=== PATIENT | female | born 1985 | race Caucasian/White ===

== ENCOUNTER 2018-08-23 15:12 | Inpatient (IN) ==
[2018-08-23] MEDS ORDERED: methylPREDNISolone SOD SUCC 125 MG/2 ML VIAL IV ONE (15:21)
[2018-08-23] MEDS ORDERED: IPRATROPIUM/ALBUTEROL 3 ML AMPUL.NEB NEB ONE ×2 (15:22→20:00)
--- NOTE | 2018-08-23 15:43 | XRay Report ---
CLINICAL INFORMATION: SOB COMPARISON: 08/18/2012 FINDINGS: Heart size, mediastinum and pulmonary vessels are normal. Moderate patchy infiltrate is developed in the right base with smaller patchy developing in the left base. No effusion IMPRESSION: Moderate patchy right basilar and smaller patchy left basilar infiltrate - new Interpreted and Authenticated by: Bala Perez 08/23/18
[2018-08-23 15:57] LABS: Mean Cell Volume 89.4 fL (80.0-100.0); Mean Corpuscular HGB Conc 33.3 g/dL (31.0-36.0); Mean Corpuscular Hemoglobin 29.8 pg (26.0-34.0); Platelet Count 265 K/mcL (140-440); RBC 5.36 M/mcL (4.00-5.20); Red Cell Distribution Width 12.9 % (11.5-14.5)
[2018-08-23] MEDS ORDERED: cefTRIAXone 1 GM VIAL IV ONE (15:57)
[2018-08-23] MEDS ORDERED: AZITHROMYCIN 500 MG in DEXTROSE 5% IN WATER 250 ML IV ONE (16:00)
[2018-08-23] MEDS ORDERED: 0.9 % SODIUM CHLORIDE 1,000 ML IV ONE ×2 (16:01→17:54)
--- NOTE | 2018-08-23 16:04 | Emergency Department Note ---
SOB HPI - General Chief Complaint: Shortness of Breath/Dyspnea Stated Complaint: SOB, tachycardia Time Seen by Provider: 08/23/18 15:19 Source: patient Mode of arrival: ambulatory Limitations: no limitations - History of Present Illness Patient has been complaining of wheezing for the past 4 days and cough. She was being seen at the pain clinic when they referred over to the ED because of her tachycardia and her shortness of breath with wheezing. She does have a history of asthma since childhood and she is been using albuterol inhaler he has been on prednisone in the past for her asthma as well.Her temperature is 98.0 her heart rate is 125 respiratory rate is 28 blood pressure 127/116 pulse ox was 94% on room air. Patient states she has been afebrile but is been her wheezing is made her short of breath. Does smoke approximately half pack of cigarettes a day she states she has had asthma since childhood - Related Data Home Medications Medication Instructions Recorded Confirmed HYDROcodone/ACETAMINOPHEN [Lortab 1 - 2 tab PO Q4H PRN 10/11/15 09/28/17 10-325 mg Tablet] Dronabinol [Marinol] 5 mg PO BID 06/11/16 09/28/17 FLUoxetine HCL [Sarafem] 20 mg PO DAILY 06/11/16 09/28/17 Gabapentin [Neurontin] 400 mg PO TID 06/11/16 09/28/17 Methocarbamol [Robaxin] 750 mg PO TID 06/11/16 09/28/17 Propranolol [Inderal] 20 mg PO DAILY 06/11/16 09/28/17 Zolpidem [Ambien] 5 mg PO HSP PRN 06/11/16 09/28/17 hydrOXYzine HCL [Hydroxyzine HCl] 50 mg PO TID 06/11/16 09/28/17 Previous Rx's Medication Instructions Recorded Cephalexin [Keflex] 500 mg PO BID #20 cap 01/17/18 Allergies Allergy/AdvReac Type Severity Reaction Status Date / Time clavulanic acid Allergy Mild Vomiting Verified 08/23/18 15:17 Buspirone [From BuSpar] Allergy Unknown Unknown Verified 08/23/18 15:17 fluticasone Allergy Unknown Unknown Verified 08/23/18 15:17 [From Advair Diskus] salmeterol Allergy Unknown Unknown Verified 08/23/18 15:17 [From Advair Diskus] sulfamethoxazole Allergy Unknown Unknown Verified 08/23/18 15:17 [From Septra] trimethoprim [From ] Allergy Unknown Unknown Verified 08/23/18 15:17 Review of Systems All systems ED: reviewed and negative except as stated. Constitutional: Denies: fever, chills Cardiovascular: Denies: chest pain, palpitations, dyspnea on exertion, orthopnea Respiratory: Reports: shortness of breath, cough, wheezes Gastrointestinal: Denies: abdominal pain Genitourinary: Denies: dysuria Past Medical History - Past Medical History Medical history: Reports: arthritis, asthma Psychiatric history: Reports: depression, prior suicide attempt, other (Self- harm, cutting) Surgical history ED: Reports: appendectomy, cholecystectomy, hysterectomy Family history: Reports: non-contributory - Social History smoking status: Current every day smoker Alcohol use: Reports: Occasionally Drug use: Reports: unknown Physical Exam Limitations: no limitations General appearance: alert Head: atraumatic Eye: Present: normal appearance, PERRL ENT: normal exam, normal oropharynx, mucous membranes moist Neck: Present: normal inspection Chest: Present: normal inspection Respiratory: Present: wheezes Cardiovascular: Present: regular rate, normal rhythm, tachycardia Abdominal: Present: soft, normal bowel sounds. Absent: distention, tenderness, guarding, rebound, rigidity Extremities: Present: normal inspection, full ROM Back: Present: normal inspection, full ROM, tenderness Neurological: Present: alert, oriented X3, CN II-XII intact Psychiatric: Present: normal affect, normal mood Skin: Present: warm, dry Course Vital Signs Temperature 98.0 F 08/23/18 15:13 Pulse Rate 128 H 08/23/18 15:13 Respiratory Rate 28 H 08/23/18 15:13 Blood Pressure 127/116 08/23/18 15:13 Pulse Oximetry (%) 94 08/23/18 15:13 Temperature 98.0 F 08/23/18 15:13 Pulse Rate 128 H 08/23/18 15:13 Respiratory Rate 28 H 08/23/18 15:13 Blood Pressure 127/116 08/23/18 15:13 Pulse Oximetry (%) 94 08/23/18 15:13 Shortness of Breath/Dyspnea - MDM Narrative Medical decision making narrative: Chest x-ray shows pneumonia both the left and the right. Blood cultures have been drawn lactic acid is pending. She started on Rocephin and Zithromax. Patient is not taking her hydroxyzineWBC is 12,000 with a hemoglobin 15.9 hematocrit of 47.9 the lactic acid was 2.4 sodium is 140 potassium 4.1 and chloride is 104 CO2 is 19 BUN is 9 creatinine 0.8 glucose is 110 of her function tests are normal the pro calcitonin level is less than 0.05. Blood cultures have been drawn. And patient started on Zithromax and Rocephin. Chest x-ray reveals right basilar and left basilar infiltrates ABGs were performed. Dr. Arrington contacted to be admitted requested vancomycin and Zosyn - Lab Data Result diagrams: 08/23/18 15:18 08/23/18 15:18 Lab Results 08/23/18 08/23/18 08/23/18 Range/Units 15:18 15:18 15:18 WBC 12.0 H (4.5-11.0) K/mcL RBC 5.36 H (4.00-5.20) M/mcL Hgb 15.9 H (12.0-15.0) g/dL Hct 47.9 (36.0-48.0) % MCV 89.4 (80.0-100.0) fL MCH 29.8 (26.0-34.0) pg MCHC 33.3 (31.0-36.0) g/dL RDW 12.9 (11.5-14.5) % Plt Count 265 (140-440) K/mcL MPV 9.1 (7.4-10.4) fL Total Counted 100 Seg Neutrophils % 67 (38-78) % Band Neutrophils % Not Reportable Lymphocytes % 28 (15-49) % Monocytes % (Manual) 4 (1-12) % Eosinophils % (Manual) 1 (0-7) % Platelet Estimate Normal (NORMAL) RBC Morphology Normal (NORMAL) VBG Lactic Acid 2.4 H (0.5-2.2) mmol/L Sodium 140 (133-145) mmol/L Potassium 4.1 (3.3-5.1) mmol/L Chloride 104 (96-108) mmol/L Carbon Dioxide 19 L (22-30) mmol/L Anion Gap 17.0 H (8-16) BUN 9 (6-20) mg/dl Creatinine 0.8 (0.6-1.1) mg/dl GFR Calculation 96 Glucose 110 H (70-105) mg/dL Calcium 9.3 (8.6-10.4) mg/dl Total Bilirubin < 0.2 (0.0-1.0) mg/dL AST 10 (0-37) U/l ALT 11 (0-40) U/l Alkaline Phosphatase 69 (39-117) U/L Total Protein 7.3 (5.9-8.4) gm/dL Albumin 4.2 (3.2-5.2) gm/dL Globulin 3.1 (2.2-3.7) gm/dL Albumin/Globulin Ratio 1.4 (1.0-2.3) Procalcitonin (<0.10) ng/mL Salicylates mg/dL Urine Opiates Screen (NONDETECTED) Ur Oxycodone Screen (NONDETECTED) Urine Methadone Screen (NONDETECTED) Acetaminophen ug/mL Ur Barbiturates Screen (NONDETECTED) Ur Phencyclidine Scrn (NONDETECTED) Ur Amphetamines Screen (NONDETECTED) U Benzodiazepines Scrn (NONDETECTED) Urine Cocaine Screen (NONDETECTED) U Marijuana (THC) Screen (NONDETECTED) Ethyl Alcohol (<0.010) gm/dl 08/23/18 08/23/18 08/23/18 Range/Units 15:18 15:26 15:27 WBC (4.5-11.0) K/mcL RBC (4.00-5.20) M/mcL Hgb (12.0-15.0) g/dL Hct (36.0-48.0) % MCV (80.0-100.0) fL MCH (26.0-34.0) pg MCHC (31.0-36.0) g/dL RDW (11.5-14.5) % Plt Count (140-440) K/mcL MPV (7.4-10.4) fL Total Counted Seg Neutrophils % (38-78) % Band Neutrophils % Lymphocytes % (15-49) % Monocytes % (Manual) (1-12) % Eosinophils % (Manual) (0-7) % Platelet Estimate (NORMAL) RBC Morphology (NORMAL) VBG Lactic Acid (0.5-2.2) mmol/L Sodium (133-145) mmol/L Potassium (3.3-5.1) mmol/L Chloride (96-108) mmol/L Carbon Dioxide (22-30) mmol/L Anion Gap (8-16) BUN (6-20) mg/dl Creatinine (0.6-1.1) mg/dl GFR Calculation Glucose (70-105) mg/dL Calcium (8.6-10.4) mg/dl Total Bilirubin (0.0-1.0) mg/dL AST (0-37) U/l ALT (0-40) U/l Alkaline Phosphatase (39-117) U/L Total Protein (5.9-8.4) gm/dL Albumin (3.2-5.2) gm/dL Globulin (2.2-3.7) gm/dL Albumin/Globulin Ratio (1.0-2.3) Procalcitonin < 0.05 (<0.10) ng/mL Salicylates mg/dL Urine Opiates Screen Suspect positive A (NONDETECTED) Ur Oxycodone Screen None detected (NONDETECTED) Urine Methadone Screen None detected (NONDETECTED) Acetaminophen ug/mL Ur Barbiturates Screen None detected (NONDETECTED) Ur Phencyclidine Scrn None detected (NONDETECTED) Ur Amphetamines Screen None detected (NONDETECTED) U Benzodiazepines Scrn None detected (NONDETECTED) Urine Cocaine Screen None detected (NONDETECTED) U Marijuana (THC) Screen None detected (NONDETECTED) Ethyl Alcohol < 0.010 (<0.010) gm/dl 08/23/18 Range/Units 15:27 WBC (4.5-11.0) K/mcL RBC (4.00-5.20) M/mcL Hgb (12.0-15.0) g/dL Hct (36.0-48.0) % MCV (80.0-100.0) fL MCH (26.0-34.0) pg MCHC (31.0-36.0) g/dL RDW (11.5-14.5) % Plt Count (140-440) K/mcL MPV (7.4-10.4) fL Total Counted Seg Neutrophils % (38-78) % Band Neutrophils % Lymphocytes % (15-49) % Monocytes % (Manual) (1-12) % Eosinophils % (Manual) (0-7) % Platelet Estimate (NORMAL) RBC Morphology (NORMAL) VBG Lactic Acid (0.5-2.2) mmol/L Sodium (133-145) mmol/L Potassium (3.3-5.1) mmol/L Chloride (96-108) mmol/L Carbon Dioxide (22-30) mmol/L Anion Gap (8-16) BUN (6-20) mg/dl Creatinine (0.6-1.1) mg/dl GFR Calculation Glucose (70-105) mg/dL Calcium (8.6-10.4) mg/dl Total Bilirubin (0.0-1.0) mg/dL AST (0-37) U/l ALT (0-40) U/l Alkaline Phosphatase (39-117) U/L Total Protein (5.9-8.4) gm/dL Albumin (3.2-5.2) gm/dL Globulin (2.2-3.7) gm/dL Albumin/Globulin Ratio (1.0-2.3) Procalcitonin (<0.10) ng/mL Salicylates < 0.3 mg/dL Urine Opiates Screen (NONDETECTED) Ur Oxycodone Screen (NONDETECTED) Urine Methadone Screen (NONDETECTED) Acetaminophen < 5.0 ug/mL Ur Barbiturates Screen (NONDETECTED) Ur Phencyclidine Scrn (NONDETECTED) Ur Amphetamines Screen (NONDETECTED) U Benzodiazepines Scrn (NONDETECTED) Urine Cocaine Screen (NONDETECTED) U Marijuana (THC) Screen (NONDETECTED) Ethyl Alcohol (<0.010) gm/dl Disposition Pt seen by [facility]LL[facility] POLISHER/PA only: No Clinical Impression: Pneumonia Qualifiers: Laterality: bilateral Lung location: lower lobe of lung Disposition: Xfer As Inpt ([facility]) Condition: Fair Referrals: Tiago Hedrick [Primary Care Provider] - Time of Disposition: 17:30
[2018-08-23 16:18] LABS: ALT/SGPT 11 U/l (0-40); Albumin 4.2 gm/dL (3.2-5.2); Albumin/Globulin Ratio 1.4 (1.0-2.3); Alkaline Phosphatase 69 U/L (39-117); Blood Urea Nitrogen 9 mg/dl (6-20)
[2018-08-23 16:20] LABS: Acetaminophen < 5.0 ug/mL; Salicylate < 0.3 mg/dL
[2018-08-23 16:36] LABS: Eosinophils % (Manual) 1 % (0-7); Lymphocytes % 28 % (15-49); Monocytes % (Manual) 4 % (1-12); Platelet Estimate NORMAL (NORMAL); RBC Morphology NORMAL (NORMAL); Segmented Neutrophils % 67 % (38-78)
[2018-08-23 17:04] LABS: Amphetamine Screen,Urine NONE DETECTED (NONDETECTED); Benzodiazepines Screen,Urine NONE DETECTED (NONDETECTED); Cocaine Screen,Urine NONE DETECTED (NONDETECTED); Opiate Screen,Urine SUSPECT POSITIVE (NONDETECTED); Oxycodone, Urine Screen NONE DETECTED (NONDETECTED)
[2018-08-23] MEDS ORDERED: PIPERACILLIN SODIUM/TAZOBACTAM 3.375 GM in DEXTROSE 5% IN WATER 50 ML IV ONE ×2 (17:30→19:44)
[2018-08-23] MEDS ORDERED: VANCOMYCIN 1,000 MG in 0.9 % SODIUM CHLORIDE 250 ML IV ONE (17:33)
--- NOTE | 2018-08-23 17:53 | Internal Med History&Physical ---
Medical - H&P: [facility] Patient information: Note initiated : 08/23/18 at 5:53 pm Service Date, if different from initiated Date: [] Patient: Marry Lerma a 33 y/o F admitted on for SOB, tachycardia. Chief Complaint: [] Chief complaint: sob History of present illness: Ms. Lerma is a 33 year old F with two week onset progressive SOB, weakness, Shaking chills and fever as high as 103. Endorses to sick contact son, Yellow brown productive sputum. Symptoms associated with severe malaise, drenching sweats. She denies aspiration episode. She further denies binge alcoholism or loss of consciousness. She failed to seek medical attention for 2 weeks until she was barely able to get out of bed or function. She subsequently came to the ER. Initial workup- Elevated WBC, bilateral chest infiltrates on imaging along with elevated lactic acid. Patient received first dose of antibiotics after blood cultures were drawn. Hospitalist service was consulted. Denies CP, Dirrhea, Arthralgia, rash, dirrhea, abdominal pain, photophobia or headache. Review of systems 10 point review systems was performed and is negative except for discussed above Medical - H&P: PMH Medical history: RAD Lower back pain H/o PNA X 2, last 4 years ago Surgical history: Cystectomy Family history: reviewed and not pertinent Pertinent family history: Grandmother cancer Social history: , 10 Yr old kid, Diabled Smokes c etoh Drug use: none Alcohol use: none Medical - H&P: Meds Home Medications Medication Instructions Recorded Confirmed Type HYDROcodone/ACETAMINOPHEN [Lortab 1 - 2 tab PO Q4H PRN 10/11/15 09/28/17 History 10-325 mg Tablet] Dronabinol [Marinol] 5 mg PO BID 06/11/16 09/28/17 History FLUoxetine HCL [Sarafem] 20 mg PO DAILY 06/11/16 09/28/17 History Gabapentin [Neurontin] 400 mg PO TID 06/11/16 09/28/17 History Methocarbamol [Robaxin] 750 mg PO TID 06/11/16 09/28/17 History Propranolol [Inderal] 20 mg PO DAILY 06/11/16 09/28/17 History Zolpidem [Ambien] 5 mg PO HSP PRN 06/11/16 09/28/17 History hydrOXYzine HCL [Hydroxyzine HCl] 50 mg PO TID 06/11/16 09/28/17 History Cephalexin [Keflex] 500 mg PO BID #20 cap 01/17/18 Rx Allergies Allergy/AdvReac Type Severity Reaction Status Date / Time clavulanic acid Allergy Mild Vomiting Verified 08/23/18 15:17 Buspirone [From BuSpar] Allergy Unknown Unknown Verified 08/23/18 15:17 fluticasone Allergy Unknown Unknown Verified 08/23/18 15:17 [From Advair Diskus] salmeterol Allergy Unknown Unknown Verified 08/23/18 15:17 [From Advair Diskus] sulfamethoxazole Allergy Unknown Unknown Verified 08/23/18 15:17 [From Septra] trimethoprim [From Septra] Allergy Unknown Unknown Verified 08/23/18 15:17 Medical - H&P: Exam - Constitutional Vitals: Temp Pulse Resp BP Pulse Ox 98.0 F 128 H 28 H 127/116 94 08/23/18 15:13 08/23/18 15:13 08/23/18 15:13 08/23/18 15:13 08/23/18 15:13 General appearance: moderate distress (SOB) Exam: Pupils symmetric Oral cavity dry No eardischarge Head normocephalic Neck lymphadenopathy S1 and S2 tachycardia Prolonged expiratory phase and diminished breath sounds bases Abdomen soft Skin no suspicious lesion Extremities no cyanosis clubbing or joint swelling Psych alert cooperative but anxious Neuro nonfocal, normal heart function and limited neuro exam Medical - H&P: Reslt - Labs CBC & Chem 7: 08/23/18 15:18 08/23/18 15:18 Labs: Short CBC 08/23/18 Range/Units 15:18 WBC 12.0 H (4.5-11.0) K/mcL Hgb 15.9 H (12.0-15.0) g/dL Hct 47.9 (36.0-48.0) % Plt Count 265 (140-440) K/mcL BMP 08/23/18 15:18 Sodium 140 Potassium 4.1 Chloride 104 Carbon Dioxide 19 L BUN 9 Creatinine 0.8 Glucose 110 H Calcium 9.3 Liver Function 08/23/18 Range/Units 15:18 Total Bilirubin < 0.2 (0.0-1.0) mg/dL AST 10 (0-37) U/l ALT 11 (0-40) U/l Alkaline Phosphatase 69 (39-117) U/L Albumin 4.2 (3.2-5.2) gm/dL Medical - H&P: A/P (1) Bilateral pneumonia Current visit: Yes Status: Acute * Bilateral PNA-likely community acquired versus aspiration. Initiate Broad Abx coverage. Strep/Mycoplasma, Legionella, Flu swab, blood cultures, sputum cultures and Gram stain. * Severe sepsis- Trend lactate, Manage per protocol. ICU admit, Crystalloids * Asthma exacerbation- LABA/ICS/oxygen supplement * Full code * DVT prop- Heparin Plan * Telemetry admit * Sepsis management protocol * Broad antibiotic coverage * Trend venous lactate
[2018-08-23] MEDS ORDERED: NOREPINEPHRINE BITARTRATE 16 MG in 0.9 % SODIUM CHLORIDE 234 ML IV SCH (19:44)
[2018-08-23] MEDS ORDERED: ONDANSETRON 4 MG/2 ML VIAL IV PRN (19:44)
[2018-08-23] MEDS ORDERED: VANCOMYCIN PER PHARMACY IV SCH (19:44)
[2018-08-23] MEDS ORDERED: ACETAMINOPHEN 1,000 MG/100 ML BOTTLE IV PRN (19:44)
[2018-08-23] MEDS ORDERED: POTASSIUM CHLORIDE 20 MEQ PACKET PO PRN (19:44)
[2018-08-23] MEDS ORDERED: ACETAMINOPHEN 325 MG TABLET PO PRN (19:44)
[2018-08-23] MEDS ORDERED: MAGNESIUM SULFATE 2 GM/50 ML BAG IV PRN (19:44)
[2018-08-23] MEDS: IPRATROPIUM/ALBUTEROL 3 ML AMPUL.NEB NEB SCH ×2 (19:54→23:20)
[2018-08-23] MEDS: BUDESONIDE 0.5 MG/2 ML AMPUL.NEB NEB SCH (19:54)
[2018-08-23] MEDS ORDERED: BUDESONIDE 0.5 MG/2 ML AMPUL.NEB NEB ONE (20:00)
[2018-08-23] MEDS: 0.9 % SODIUM CHLORIDE 1,000 ML IV SCH (20:19)
[2018-08-23] MEDS ORDERED: HYDROcodone/APAP 10/325MG TABLET PO PRN (20:39)
[2018-08-23] MEDS: HYDROcodone/APAP 10/325MG TABLET PO PRN (21:48)
[2018-08-23] MEDS: DOCUSATE SODIUM 100 MG CAPSULE PO SCH (21:49)
[2018-08-23] MEDS: SENNOSIDES/DOCUSATE SODIUM 1 TAB TABLET PO SCH (21:49)
[2018-08-23] MEDS: HEPARIN 5,000 UNIT/ML VIAL SQ SCH (21:49)
[2018-08-23] MEDS: GABAPENTIN 400 MG CAPSULE PO SCH (21:49)
[2018-08-23] MEDS: guaiFENesin/CODEINE 10 ML UDC PO PRN (21:50)
[2018-08-23] MEDS ORDERED: NICOTINE 14 MG PATCH ONE (22:18)
[2018-08-23] MEDS: DRONABINOL 2.5 MG CAPSULE PO SCH (22:26)
[2018-08-23] MEDS: ZOLPIDEM 5 MG TABLET PO PRN ×3 (22:26→22:29)
[2018-08-23] MEDS: 0.9 % SODIUM CHLORIDE 10 ML SYRINGE IV SCH (22:28)
[2018-08-23] MEDS: NICOTINE 14 MG PATCH TOPICAL SCH (22:30)
[2018-08-24] MEDS: PIPERACILLIN SODIUM/TAZOBACTAM 3.375 GM in DEXTROSE 5% IN WATER 50 ML IV SCH ×2 (00:08→05:50)
[2018-08-24] MEDS: IPRATROPIUM/ALBUTEROL 3 ML AMPUL.NEB NEB SCH ×6 (03:15→22:57)
[2018-08-24] MEDS: HYDROcodone/APAP 10/325MG TABLET PO PRN ×4 (03:21→18:51)
[2018-08-24] MEDS: guaiFENesin/CODEINE 10 ML UDC PO PRN ×4 (04:12→18:53)
[2018-08-24 05:32] LABS: Mean Cell Volume 91.3 fL (80.0-100.0); Mean Corpuscular HGB Conc 32.7 g/dL (31.0-36.0); Mean Corpuscular Hemoglobin 29.8 pg (26.0-34.0); Platelet Count 204 K/mcL (140-440); RBC 4.65 M/mcL (4.00-5.20); Red Cell Distribution Width 12.9 % (11.5-14.5)
[2018-08-24 05:33] LABS: ALT/SGPT 7 U/l (0-40); Albumin 3.3 gm/dL (3.2-5.2); Albumin/Globulin Ratio 1.1 (1.0-2.3); Alkaline Phosphatase 50 U/L (39-117); Bilirubin,Direct < 0.2 mg/dL (0.0-0.3); Blood Urea Nitrogen 10 mg/dl (6-20); Gamma Glutamyl Transpeptidase 21 U/L (5-36)
[2018-08-24] MEDS: 0.9 % SODIUM CHLORIDE 10 ML SYRINGE IV SCH ×3 (05:51→22:15)
[2018-08-24 07:48] LABS: Band Neutrophils % 1 % (0-10); Lymphocytes % 21 % (15-49); Monocytes % (Manual) 2 % (1-12); Platelet Estimate NORMAL (NORMAL); RBC Morphology NORMAL (NORMAL); Segmented Neutrophils % 75 % (38-78)
[2018-08-24] MEDS: 0.9 % SODIUM CHLORIDE 1,000 ML IV SCH ×2 (08:14→19:09)
[2018-08-24] MEDS: MULTIVIT,THER IRON,CA,FA & MIN 1 TABLET PO SCH (08:34)
[2018-08-24] MEDS: HEPARIN 5,000 UNIT/ML VIAL SQ SCH ×2 (08:34→20:11)
[2018-08-24] MEDS: GABAPENTIN 400 MG CAPSULE PO SCH ×3 (08:34→20:12)
[2018-08-24] MEDS: DOCUSATE SODIUM 100 MG CAPSULE PO SCH ×2 (08:34→20:12)
[2018-08-24] MEDS ORDERED: VANCOMYCIN 1,000 MG in 0.9 % SODIUM CHLORIDE 250 ML IV SCH (09:00)
[2018-08-24] MEDS: BUDESONIDE 0.5 MG/2 ML AMPUL.NEB NEB SCH ×2 (09:15→19:02)
[2018-08-24] MEDS ORDERED: NOREPINEPHRINE BITARTRATE 16 MG in 0.9 % SODIUM CHLORIDE 234 ML IV PRN (10:00)
--- NOTE | 2018-08-24 10:37 | Internal Med Progress Note ---
Medical - PN: Subj Patient information: Note initiated : 08/24/18 at 10:35 am Service Date, if different from initiated Date: [] Patient: Marry Lerma a 33 y/o F admitted on 08/23/18 for SOB, tachycardia. Chief Complaint: [] Interval history: Ms. Lerma is a 33 year old F with two week onset progressive SOB, weakness, Shaking chills and fever as high as 103. Endorses to sick contact son, Yellow brown productive sputum. Symptoms associated with severe malaise, drenching sweats. She denies aspiration episode. She further denies binge alcoholism or loss of consciousness. She failed to seek medical attention for 2 weeks until she was barely able to get out of bed or function. She subsequently came to the ER. Initial workup- Elevated WBC, bilateral chest infiltrates on imaging along with elevated lactic acid. Patient received first dose of antibiotics after blood cultures were drawn. Hospitalist service was consulted. Denies CP, Dirrhea, Arthralgia, rash, dirrhea, abdominal pain, photophobia or headache. 08/24-patient doing well. No overnight events. Persistent tachycardia. Venous lactate at 3.2. White count down from 12-9.4. Urine strep pneumo antigen positive along with mycoplasma IgM. Excellent coverage to cover atypicals. Mother and son at bedside. Patient feels a little better. Continue existing treatment. MAXIMUM TEMPERATURE 99.4. Stable hemodynamics. Persistent cough. Back pain stable on home meds. Continue bronchodilators/ steroids. Switched to Levaquin/ Rocephin, DC Zosyn/vancomycin - Constitutional Vitals: Vital Signs Temp Pulse Resp BP Pulse Ox 99.4 F H 121 H 17 102/53 94 08/24/18 08:25 08/24/18 10:01 08/24/18 10:01 08/24/18 10:01 08/24/18 10:01 Period Temp Pulse Resp BP Sys/Prajapati Pulse Ox Last 24 Hr 98.0 F-99.7 F 76-153 14-33 102-135/53-116 91-98 Intake and Output 08/23/18 08/24/18 08/24/18 21:59 05:59 13:59 Intake Total 2790 / 2790 570 / 570 1290 / 1290 Output Total 850 / 850 950 / 950 850 / 850 Balance 1940 / 1940 -380 / -380 440 / 440 Weight 140 lb 14.4 oz Intake & Output: Intake & Output 08/23/18 08/24/18 08/24/18 21:59 05:59 13:59 Intake Total 2790 / 2790 570 / 570 1290 / 1290 Output Total 850 / 850 950 / 950 850 / 850 Balance 1939 / 0 -380 / -380 440 / 440 Weight 140 lb 14.4 oz Intake: IV 2550 / 2550 50 / 50 1050 / 1050 Sodium Chloride 0.9% 1,000 ml @ 2000 / 2000 1000 / 1000 100 mls/hr IV .Q10H [facility] Rx#: [id number] Zithromax 500 mg In Dextrose 5% 250 / 250 in Water 250 ml @ 250 mls/hr IV ONCE ONE Rx#:[id number] Zosyn 3.375 gm In Dextrose 5% 50 / 50 50 / 50 50 / 50 in Water 50 ml @ 100 mls/hr IV Q6H [facility] Rx#:[id number] Vancomycin 1,000 mg In Sodium 250 / 250 Chloride 0.9% 250 ml @ 250 mls/ hr IV ONCE ONE Rx#:[id number] Oral 240 / 240 520 / 520 240 / 240 Output: Void Amount 850 / 850 950 / 950 850 / 850 Other: Meal Dinner snack Breakfast Percent of Meal Consumed 75% 100% 75% Feeding Ability Assist with Tray Set Up Assist with Tray Set Up Independent Urine Appearance Clear Clear Clear Urine Color Straw Straw Bright Yellow Urine Odor Normal Normal Normal General appearance: cooperative, no acute distress Exam: Alert oriented Minimally labored breathing Tachypneic Tachycardic No anxiety Medical - PN: Obj Da - Labs CBC & Chem 7: 08/24/18 04:00 08/24/18 04:00 Labs: Abnormal Lab Results 08/24/18 08/24/18 08/23/18 04:00 04:00 15:27 WBC RBC Hgb ESR VBG Lactic Acid 3.2 H Carbon Dioxide 20 L Anion Gap Glucose 143 H Phosphorus 1.5 L Urine Opiates Screen Mycoplasma pneumon IgM Ur Strep pneumoniae Ag Positive A 08/23/18 08/23/18 08/23/18 15:27 15:18 15:18 WBC RBC Hgb ESR 37 H VBG Lactic Acid Carbon Dioxide Anion Gap Glucose Phosphorus Urine Opiates Screen Suspect positive A Mycoplasma pneumon IgM Positive A Ur Strep pneumoniae Ag 08/23/18 08/23/18 08/23/18 15:18 15:18 15:18 WBC 12.0 H RBC 5.36 H Hgb 15.9 H ESR VBG Lactic Acid 2.4 H Carbon Dioxide 19 L Anion Gap 17.0 H Glucose 110 H Phosphorus Urine Opiates Screen Mycoplasma pneumon IgM Ur Strep pneumoniae Ag Meds: Medications Acetaminophen (Tylenol) 650 mg PO Q4-6HP PRN PRN Reason: PAIN/FEVER > 101 Hydrocodone Bitart/Acetaminophen (Ragley 10/325mg) 1 - 2 tab PO Q4H PRN PRN Reason: Pain Last Admin: 08/24/18 08:47 Dose: 2 tab Albuterol/Ipratropium (Duoneb) 3 ml NEB Q4HRT [facility] Last Admin: 08/24/18 07:53 Dose: 3 ml Budesonide (Pulmicort) 0.5 mg NEB Q12 [facility] Last Admin: 08/24/18 09:15 Dose: 0.5 mg Docusate Sodium (Colace) 100 mg PO BID [facility] Last Admin: 08/24/18 08:34 Dose: 100 mg Dronabinol (Marinol) 5 mg PO BID [facility] Last Admin: 08/23/18 22:26 Dose: Not Given Gabapentin (Neurontin) 400 mg PO TID [facility] Last Admin: 08/24/18 08:34 Dose: 400 mg Guaifenesin/Codeine Phosphate (Robitussin Ac) 10 ml PO Q4HP PRN PRN Reason: Cough Last Admin: 08/24/18 08:24 Dose: 10 ml Heparin Sodium (Porcine) (Heparin) 5,000 unit SQ Q12 [facility] Last Admin: 08/24/18 08:34 Dose: 5,000 unit Magnesium Sulfate (Magnesium Sulfate) 2 gm in 50 mls @ 50 mls/hr IV UD PRN PRN Reason: MG = or < 1.7 Sodium Chloride (Sodium Chloride 0.9%) 1,000 mls @ 100 mls/hr IV .Q10H [facility] Last Admin: 08/24/18 08:14 Dose: 100 mls/hr Acetaminophen (Ofirmev) 1,000 mg in 100 mls @ 200 mls/hr IV Q6HP PRN PRN Reason: PAIN/FEVER > 101 Piperacillin Sod/Tazobactam (Sod 3.375 gm/ Dextrose) 50 mls @ 100 mls/hr IV Q6H [facility] Last Infusion: 08/24/18 06:20 Dose: Infused Vancomycin HCl 1,000 mg/ (Sodium Chloride) 250 mls @ 250 mls/hr IV Q12H [facility] Last Admin: 08/24/18 08:51 Dose: 250 mls/hr Norepinephrine Bitartrate 16 (mg/ Sodium Chloride) 250 mls @ 9.37 mls/hr IV Q24HP PRN; Protocol PRN Reason: Hypotension Levofloxacin (Levaquin) 750 mg in 150 mls @ 100 mls/hr IV Q24H [facility] Iron Carb/Multivit/[place]/Folic Acid (Multivitamin W/Minerals) 1 tab PO DAILY [facility] Last Admin: 08/24/18 08:34 Dose: 1 tab Nicotine (Nicoderm) 14 mg TOPICAL DAILY@1000 [facility] Last Admin: 08/23/18 22:30 Dose: Not Given Ondansetron HCl (Zofran) 4 mg IV Q4-6HP PRN PRN Reason: Nausea And Vomiting Potassium Chloride (Klor-Con) 40 meq PO DAILYP PRN PRN Reason: K+ < 3.5 Senna/Docusate Sodium (Senna Plus Tablet) 1 tab PO HS [facility] Last Admin: 08/23/18 21:49 Dose: Not Given Sodium Chloride (Saline Flush) 10 ml IV Q8 [facility] Last Admin: 08/24/18 05:51 Dose: Not Given Vancomycin HCl (Vancomycin Per Pharmacy) 1 order IV UD [facility] Zolpidem Tartrate (Ambien) 5 mg PO HSP PRN PRN Reason: Sleep Last Admin: 08/23/18 22:29 Dose: 5 mg Medical - PN: A/P - Time Spent With Patient Total time spent is greater than 50% in coordination of care (as documented) at patient's floor/unit and/or counseling patient: 25 - 35 minutes (1) Bilateral pneumonia Status: Acute Assessment and plan: * Bilateral PNA-. Community acquire pneumonia with Mycoplasma/pneumococci. De- escalate antibiotics to Levaquin/Rocephin. Await sputum cultures. * Severe sepsis-elevated lactate. Continue crystalloids/antibiotic coverage. Continue telemetry monitoring. * Asthma exacerbation- LABA/ICS/oxygen * Chronic back pain continue home dose opioids * Full code * DVT prop- Heparin Plan * Bronchodilators/submental oxygen * Sepsis management protocol * DC Zosyn/vancomycin Current Visit: Yes Medical - PN: Qual - Stroke Symptom Onset Unknown: No - VTE Deep Vein Thrombosis/Pulmonary Embolism Present on Admission: No
[2018-08-24] MEDS: NEUTRA PHOS 1 PACKET PO SCH ×2 (10:56→20:11)
[2018-08-24] MEDS: NICOTINE 14 MG PATCH TOPICAL SCH (10:56)
[2018-08-24] MEDS: LEVOFLOXACIN 750 MG/150 ML BAG IV SCH (11:00)
[2018-08-24] MEDS: cefTRIAXone 2 GM in DEXTROSE 5% IN WATER 50 ML IV SCH (13:38)
[2018-08-24] MEDS: DRONABINOL 2.5 MG CAPSULE PO SCH ×2 (13:54→20:13)
[2018-08-24] MEDS: SENNOSIDES/DOCUSATE SODIUM 1 TAB TABLET PO SCH (20:11)
[2018-08-24] MEDS: ZOLPIDEM 5 MG TABLET PO PRN (20:12)
[2018-08-25] MEDS: IPRATROPIUM/ALBUTEROL 3 ML AMPUL.NEB NEB SCH ×6 (03:51→23:08)
[2018-08-25] MEDS: HYDROcodone/APAP 10/325MG TABLET PO PRN ×5 (04:12→20:24)
[2018-08-25] MEDS: guaiFENesin/CODEINE 10 ML UDC PO PRN ×4 (04:30→19:16)
[2018-08-25] MEDS: 0.9 % SODIUM CHLORIDE 10 ML SYRINGE IV SCH ×4 (05:31→20:24)
[2018-08-25 06:13] LABS: Mean Cell Volume 91.3 fL (80.0-100.0); Mean Corpuscular Hemoglobin 30.2 pg (26.0-34.0); Platelet Count 198 K/mcL (140-440); RBC 4.41 M/mcL (4.00-5.20); Red Cell Distribution Width 13.2 % (11.5-14.5)
--- NOTE | 2018-08-25 06:35 | XRay Report ---
CLINICAL INFORMATION: Follow-up infiltrates COMPARISON: 08/23/2018 FINDINGS: Heart size, mediastinum and pulmonary vessels are normal. Bibasilar infiltrates have almost resolved with minimal residual. No effusion IMPRESSION: Complete resolution in bibasilar infiltrates. Interpreted and Authenticated by: Bala Perez 08/25/18
[2018-08-25 07:08] LABS: ALT/SGPT < 5 U/l (0-40); Albumin 3.2 gm/dL (3.2-5.2); Alkaline Phosphatase 48 U/L (39-117); Bilirubin,Direct < 0.2 mg/dL (0.0-0.3); Blood Urea Nitrogen 13 mg/dl (6-20); Gamma Glutamyl Transpeptidase 23 U/L (5-36); Uric Acid 2.8 mg/dL (2.5-8.0)
[2018-08-25 07:48] LABS: Band Neutrophils % 2 % (0-10); Eosinophils % (Manual) 1 % (0-7); Lymphocytes % 31 % (15-49); Monocytes % (Manual) 5 % (1-12); Platelet Estimate NORMAL (NORMAL); RBC Morphology NORMAL (NORMAL); Segmented Neutrophils % 58 % (38-78)
[2018-08-25] MEDS: BUDESONIDE 0.5 MG/2 ML AMPUL.NEB NEB SCH ×3 (09:10→19:48)
[2018-08-25] MEDS: HEPARIN 5,000 UNIT/ML VIAL SQ SCH ×2 (09:12→20:23)
[2018-08-25] MEDS: DOCUSATE SODIUM 100 MG CAPSULE PO SCH ×2 (09:12→20:23)
[2018-08-25] MEDS: GABAPENTIN 400 MG CAPSULE PO SCH ×3 (09:13→20:24)
[2018-08-25] MEDS: MULTIVIT,THER IRON,CA,FA & MIN 1 TABLET PO SCH (09:13)
[2018-08-25] MEDS: DRONABINOL 2.5 MG CAPSULE PO SCH ×2 (09:13→20:24)
[2018-08-25] MEDS: NEUTRA PHOS 1 PACKET PO SCH ×2 (09:14→20:24)
[2018-08-25] MEDS: NICOTINE 14 MG PATCH TOPICAL SCH (09:17)
[2018-08-25] MEDS: cefTRIAXone 2 GM in DEXTROSE 5% IN WATER 50 ML IV SCH (09:27)
[2018-08-25] MEDS: LEVOFLOXACIN 750 MG/150 ML BAG IV SCH (10:24)
[2018-08-25] MEDS ORDERED: ONDANSETRON 4 MG/2 ML VIAL IV PRN (10:26)
[2018-08-25] MEDS ORDERED: MAGNESIUM SULFATE 2 GM/50 ML BAG IV PRN (10:26)
[2018-08-25] MEDS ORDERED: POTASSIUM CHLORIDE 20 MEQ PACKET PO PRN (10:26)
[2018-08-25] MEDS ORDERED: ACETAMINOPHEN 1,000 MG/100 ML BOTTLE IV PRN (10:26)
[2018-08-25] MEDS ORDERED: ZOLPIDEM 5 MG TABLET PO PRN (10:26)
[2018-08-25] MEDS ORDERED: ACETAMINOPHEN 325 MG TABLET PO PRN (10:26)
--- NOTE | 2018-08-25 11:02 | Internal Med Progress Note ---
Medical - PN: Subj Patient information: Note initiated : 08/25/18 at 11:00 am Service Date, if different from initiated Date: [] Patient: Marry Lerma a 33 y/o F admitted on 08/23/18 for SOB, Tachycardia/ Bilateral PNA. Chief Complaint: [] Interval history: Ms. Lerma is a 33 year old F with two week onset progressive SOB, weakness, Shaking chills and fever as high as 103. Endorses to sick contact son, Yellow brown productive sputum. Symptoms associated with severe malaise, drenching sweats. She denies aspiration episode. She further denies binge alcoholism or loss of consciousness. She failed to seek medical attention for 2 weeks until she was barely able to get out of bed or function. She subsequently came to the ER. Initial workup- Elevated WBC, bilateral chest infiltrates on imaging along with elevated lactic acid. Patient received first dose of antibiotics after blood cultures were drawn. Hospitalist service was consulted. Denies CP, Dirrhea, Arthralgia, rash, dirrhea, abdominal pain, photophobia or headache. 08/24-patient doing well. No overnight events. Persistent tachycardia. Venous lactate at 3.2. White count down from 12-9.4. Urine strep pneumo antigen positive along with mycoplasma IgM. Excellent coverage to cover atypicals. Mother and son at bedside. Patient feels a little better. Continue existing treatment. MAXIMUM TEMPERATURE 99.4. Stable hemodynamics. Persistent cough. Back pain stable on home meds. Continue bronchodilators/ steroids. Switched to Levaquin/ Rocephin, DC Zosyn/vancomycin 1025- Pt doing well, No overnight events, HR~90-100, Interval resolution of PNA on chest imaging, stable labs and vitals. On room air. Transfer to medical floor. Continue ambulation and nutrition support. Venous lactate normalized. Transition to oral antibiotics in 24 hours. White count downtrending now in normal limits. - Constitutional Vitals: Vital Signs Temp Pulse Resp BP Pulse Ox 99.1 F H 120 H 13 126/72 95 08/25/18 08:01 08/25/18 09:10 08/25/18 09:10 08/25/18 09:01 08/25/18 09:01 Period Temp Pulse Resp BP Sys/Prajapati Pulse Ox Last 24 Hr 97.0 F-99.8 F 18-143 11-29 76-139/61-99 94-100 Intake and Output 08/24/18 08/25/18 08/25/18 21:59 05:59 13:59 Intake Total 1560 / 1560 400 / 400 50 / 50 Output Total 1525 / 1525 1575 / 1575 Balance 35 / 35 -1175 / -1175 50 / 50 Weight 145 lb 14.4 oz Intake & Output: Intake & Output 08/24/18 08/25/18 08/25/18 21:59 05:59 13:59 Intake Total 1560 / 1560 400 / 400 50 / 50 Output Total 1525 / 1525 1575 / 1575 Balance 35 / 35 -1175 / -1175 50 / 50 Weight 145 lb 14.4 oz Intake: IV 860 / 860 50 / 50 Sodium Chloride 0.9% 1,000 ml @ 810 / 810 100 mls/hr IV .Q10H [facility] Rx#: [id number] Rocephin 2 gm In Dextrose 5% in 50 / 50 50 / 50 Water 50 ml @ 100 mls/hr IV Q24H [facility] Rx#:[id number] Oral 700 / 700 400 / 400 Output: Urine Catheter Amount 300 / 300 Void Amount 1525 / 1525 1275 / 1275 Other: Meal Dinner snack Percent of Meal Consumed 100% 100% Feeding Ability Independent Assist with Tray Set Up Urine Appearance Clear Clear Urine Color Bright Yellow Bright Yellow Urine Odor Strong Normal General appearance: cooperative, no acute distress Exam: Alert oriented Nonlabored breathing No anxiety No telemetry events except for occasional tachycardia Nondistended abdomen Medical - PN: Obj Da - Labs CBC & Chem 7: 08/25/18 03:57 08/25/18 03:57 Labs: Abnormal Lab Results 08/25/18 08/25/18 08/24/18 03:57 03:57 04:00 WBC RBC Hgb Reactive Lymphocytes 3 H ESR VBG Lactic Acid Carbon Dioxide 20 L Anion Gap Glucose 143 H Phosphorus 5.1 H 1.5 L Triglycerides 188 H Urine Opiates Screen Mycoplasma pneumon IgM Ur Strep pneumoniae Ag 08/24/18 08/23/18 08/23/18 04:00 15:27 15:27 WBC RBC Hgb Reactive Lymphocytes ESR VBG Lactic Acid 3.2 H Carbon Dioxide Anion Gap Glucose Phosphorus Triglycerides Urine Opiates Screen Suspect positive A Mycoplasma pneumon IgM Ur Strep pneumoniae Ag Positive A 08/23/18 08/23/18 08/23/18 15:18 15:18 15:18 WBC RBC Hgb Reactive Lymphocytes ESR 37 H VBG Lactic Acid 2.4 H Carbon Dioxide Anion Gap Glucose Phosphorus Triglycerides Urine Opiates Screen Mycoplasma pneumon IgM Positive A Ur Strep pneumoniae Ag 08/23/18 08/23/18 15:18 15:18 WBC 12.0 H RBC 5.36 H Hgb 15.9 H Reactive Lymphocytes ESR VBG Lactic Acid Carbon Dioxide 19 L Anion Gap 17.0 H Glucose 110 H Phosphorus Triglycerides Urine Opiates Screen Mycoplasma pneumon IgM Ur Strep pneumoniae Ag Meds: Medications Acetaminophen (Tylenol) 650 mg PO Q4-6HP PRN PRN Reason: PAIN/FEVER > 101 Hydrocodone Bitart/Acetaminophen ([place] 10/325mg) 1 - 2 tab PO Q4H PRN PRN Reason: Pain Albuterol/Ipratropium (Duoneb) 3 ml NEB Q4HRT [facility] Budesonide (Pulmicort) 0.5 mg NEB Q12 [facility] Docusate Sodium (Colace) 100 mg PO BID [facility] Dronabinol (Marinol) 5 mg PO BID [facility] Gabapentin (Neurontin) 400 mg PO TID [facility] Guaifenesin/Codeine Phosphate (Robitussin Ac) 10 ml PO Q4HP PRN PRN Reason: Cough Heparin Sodium (Porcine) (Heparin) 5,000 unit SQ Q12 [facility] Ceftriaxone Sodium 2 gm/ (Dextrose) 50 mls @ 100 mls/hr IV Q24H [facility] Levofloxacin (Levaquin) 750 mg in 150 mls @ 100 mls/hr IV Q24H [facility] Magnesium Sulfate (Magnesium Sulfate) 2 gm in 50 mls @ 50 mls/hr IV UD PRN PRN Reason: MG = or < 1.7 Acetaminophen (Ofirmev) 1,000 mg in 100 mls @ 200 mls/hr IV Q6HP PRN PRN Reason: PAIN/FEVER > 101 Iron Carb/Multivit/[place]/Folic Acid (Multivitamin W/Minerals) 1 tab PO DAILY [facility] Nicotine (Nicoderm) 14 mg TOPICAL DAILY@1000 [facility] Ondansetron HCl (Zofran) 4 mg IV Q4-6HP PRN PRN Reason: Nausea And Vomiting Potassium Chloride (Klor-Con) 40 meq PO DAILYP PRN PRN Reason: K+ < 3.5 Potassium/Phosphorus/Sodium (Neutra Phos) 2 packet PO BID [facility] Senna/Docusate Sodium (Senna Plus Tablet) 1 tab PO HS [facility] Sodium Chloride (Saline Flush) 10 ml IV Q8 [facility] Zolpidem Tartrate (Ambien) 5 mg PO HSP PRN PRN Reason: Sleep Medical - PN: A/P - Time Spent With Patient Total time spent is greater than 50% in coordination of care (as documented) at patient's floor/unit and/or counseling patient: 15 - 24 minutes (1) Bilateral pneumonia Status: Acute Assessment and plan: * Bilateral PNA-clinical improvement noted along with interval resolution on chest imaging. Continue coverage for Mycoplasma/pneumococci. Anticipate discharge in 24 hours on oral antibiotic * Severe sepsis-clinically improvement noted with downtrending white count and venous lactate normalization. Transition to medical floor * Asthma exacerbation- LABA/ICS * Chronic back pain continue home dose opioids * Full code * DVT prop- Heparin Plan * Bronchodilators/submental oxygen * Possible discharge in 24 hours on oral antibiotics. Current Visit: Yes Medical - PN: Qual - Stroke Symptom Onset Unknown: No - VTE Deep Vein Thrombosis/Pulmonary Embolism Present on Admission: No
[2018-08-25] MEDS ORDERED: CALCIUM CARBONATE 500 MG TAB.CHEW CHEWED PRN (16:05)
[2018-08-25] MEDS ORDERED: SENNOSIDES/DOCUSATE SODIUM 1 TAB TABLET PO SCH (21:00)
[2018-08-26] MEDS: HYDROcodone/APAP 10/325MG TABLET PO PRN ×3 (00:29→09:03)
[2018-08-26] MEDS: 0.9 % SODIUM CHLORIDE 10 ML SYRINGE IV SCH (04:32)
[2018-08-26] MEDS: IPRATROPIUM/ALBUTEROL 3 ML AMPUL.NEB NEB SCH ×3 (04:32→10:52)
[2018-08-26 06:31] LABS: Mean Cell Volume 90.6 fL (80.0-100.0); Mean Corpuscular HGB Conc 33.2 g/dL (31.0-36.0); Mean Corpuscular Hemoglobin 30.1 pg (26.0-34.0); Platelet Count 217 K/mcL (140-440); RBC 4.89 M/mcL (4.00-5.20); Red Cell Distribution Width 13.6 % (11.5-14.5)
[2018-08-26 06:56] LABS: ALT/SGPT 9 U/l (0-40); Albumin 3.9 gm/dL (3.2-5.2); Albumin/Globulin Ratio 1.3 (1.0-2.3); Alkaline Phosphatase 60 U/L (39-117); Bilirubin,Direct < 0.2 mg/dL (0.0-0.3); Blood Urea Nitrogen 18 mg/dl (6-20); Gamma Glutamyl Transpeptidase 26 U/L (5-36); Uric Acid 3.6 mg/dL (2.5-8.0)
[2018-08-26] MEDS: guaiFENesin/CODEINE 10 ML UDC PO PRN (07:10)
[2018-08-26] MEDS: GABAPENTIN 400 MG CAPSULE PO SCH (07:10)
[2018-08-26] MEDS: DRONABINOL 2.5 MG CAPSULE PO SCH (07:11)
[2018-08-26] MEDS: NEUTRA PHOS 1 PACKET PO SCH (07:11)
[2018-08-26] MEDS: HEPARIN 5,000 UNIT/ML VIAL SQ SCH ×2 (07:11→07:14)
[2018-08-26] MEDS: DOCUSATE SODIUM 100 MG CAPSULE PO SCH (07:11)
[2018-08-26] MEDS: NICOTINE 14 MG PATCH TOPICAL SCH ×2 (07:16→09:14)
[2018-08-26 08:01] LABS: Eosinophils % (Manual) 2 % (0-7); Lymphocytes % 40 % (15-49); Monocytes % (Manual) 5 % (1-12); Platelet Estimate NORMAL (NORMAL); RBC Morphology NORMAL (NORMAL); Segmented Neutrophils % 52 % (38-78)
[2018-08-26] MEDS: BUDESONIDE 0.5 MG/2 ML AMPUL.NEB NEB SCH (09:00)
[2018-08-26] MEDS ORDERED: MULTIVIT,THER IRON,CA,FA & MIN 1 TABLET PO SCH (09:00)
[2018-08-26] MEDS ORDERED: cefTRIAXone 2 GM in DEXTROSE 5% IN WATER 50 ML IV SCH (09:00)
--- NOTE | 2018-08-26 09:38 | Discharge Summary ---
Medical - DS: Prov Patient information: Note initiated : 08/26/18 at 9:36 am Service Date, if different from initiated Date: [] Patient: Marry Lerma a 33 y/o F admitted on 08/23/18 for SOB, Tachycardia/ Bilateral PNA. Chief Complaint: [] Date of admission: 08/23/18 19:24 Discharge date: 08/26/18 Primary care physician: Tiago Hedrick Consults: 08/23/18 17:28 Consult to Physician [CONS] Stat Comment: Consulting Provider: Masoud Nunez Reason For Exam: Physician to Consult Medical - DS: Meds - Discharge Medications Prescriptions: Cefdinir 300 mg PO BID #10 cap guaiFENesin/CODEINE [Robitussin AC] 10 ml PO Q4HP PRN 10 Days #1 udc PRN Reason: Cough Levofloxacin [Levaquin] 750 mg PO DAILY #2 tab Active and Home Medications: Home Medications HYDROcodone/ACETAMINOPHEN [Lortab 10-325 mg Tablet] 1 - 2 tab PO Q4H PRN [History Confirmed 08/23/18 Last Taken 08/23/18 08:00] Dronabinol [Marinol] 5 mg PO BID 06/11/16 [History Confirmed 08/23/18 Last Taken 08/22/18 08:00] Gabapentin [Neurontin] 400 mg PO TID 06/11/16 [History Confirmed 08/23/18 Last Taken 08/23/18 13:00] Zolpidem [Ambien] 5 mg PO HSP PRN 06/11/16 [History Confirmed 08/23/18 Last Taken 08/22/18 21:00] Cefdinir 300 mg PO BID #10 cap 08/26/18 [Rx Last Taken Unknown] Levofloxacin [Levaquin] 750 mg PO DAILY #2 tab 08/26/18 [Rx Last Taken Unknown] Medical - DS: Hosp Hospital course: DISCHARGE DIAGNOSIS * Bilateral pneumococcal/mycoplasma PNA-clinical improvement noted on antibiotics. Continue additional 5 days third generation cyclosporine/2 days Levaquin. Radiological clearance noted. * Severe sepsis-clinically resolved. * Asthma exacerbation- LABA/ICS to continue * Chronic back pain continue home dose opioids Brief hospital course Ms Lerma is a 33 year old F with two week onset progressive SOB, weakness, Shaking chills and fever as high as 103. Endorses to sick contact son, Yellow brown productive sputum. Symptoms associated with severe malaise, drenching sweats. She denies aspiration episode. She further denies binge alcoholism or loss of consciousness. She failed to seek medical attention for 2 weeks until she was barely able to get out of bed or function. She subsequently came to the ER. Initial workup- Elevated WBC, bilateral chest infiltrates on imaging along with elevated lactic acid. Patient received first dose of antibiotics after blood cultures were drawn. Hospitalist service was consulted. Denies CP, Dirrhea, Arthralgia, rash, dirrhea, abdominal pain, photophobia or headache. 08/24-patient doing well. No overnight events. Persistent tachycardia. Venous lactate at 3.2. White count down from 12-9.4. Urine strep pneumo antigen positive along with mycoplasma IgM. Excellent coverage to cover atypicals. Mother and son at bedside. Patient feels a little better. Continue existing treatment. MAXIMUM TEMPERATURE 99.4. Stable hemodynamics. Persistent cough. Back pain stable on home meds. Continue bronchodilators/ steroids. Switched to Levaquin/ Rocephin, DC Zosyn/vancomycin 1025- Pt doing well, No overnight events, HR~90-100, Interval resolution of PNA on chest imaging, stable labs and vitals. On room air. Transfer to medical floor. Continue ambulation and nutrition support. Venous lactate normalized. Transition to oral antibiotics in 24 hours. White count downtrending now in normal limits. 08/26-patient doing well. No overnight events. No fever chills shortness of breath. Cough persistent. Able to family. Currently on room air. Requesting discharge. Continue additional 5 days antibiotics along with mucolytic's. Return to ER if worsening symptoms. Discharge instructions as below. Discharge diagnosis: . - Time Spent with Patient Total time spent providing and/or coordinating discharge services: Medical - DS: Exam - Constitutional Vitals: Vital Signs Temp Pulse Pulse Resp BP BP BP 08/26/18 07:23 08/26/18 07:21 100 H 14 08/26/18 06:52 97.4 F 18 108/66 08/26/18 04:00 98.1 F 96 H 18 101/61 08/26/18 00:00 98.2 F 108 H 22 118/69 08/25/18 19:55 97.9 F 114 H 20 122/78 08/25/18 18:55 114 H 20 08/25/18 16:23 90 18 08/25/18 15:31 98.2 F 95 H 18 120/83 08/25/18 12:47 100 H 20 08/25/18 12:46 100 H 20 08/25/18 12:13 109 H 18 123/89 08/25/18 12:00 98.9 F 110 H 20 123/89 08/25/18 10:00 84 16 108/63 Pulse Ox 08/26/18 07:23 98 08/26/18 07:21 08/26/18 06:52 93 08/26/18 04:00 94 08/26/18 00:00 94 08/25/18 19:55 94 08/25/18 18:55 95 08/25/18 16:23 08/25/18 15:31 92 08/25/18 12:47 99 08/25/18 12:46 08/25/18 12:13 94 08/25/18 12:00 94 08/25/18 10:00 94 Intake and Output 08/25/18 08/26/18 08/26/18 21:59 05:59 13:59 Intake Total 1020 / 1020 180 / 180 Balance 1020 / 1020 180 / 180 Intake: IV 100 / 100 Oral 920 / 920 180 / 180 Other: Meal Dinner Breakfast Percent of Meal Consumed 100% 85% Feeding Ability Independent Independent # Voids 2 Weight 141 lb 8 oz Medical - DS: Data Labs on day of discharge: Labs from last 24 hours 08/26/18 08/26/18 05:19 05:19 WBC 8.1 RBC 4.89 Hgb 14.7 Hct 44.3 MCV 90.6 MCH 30.1 MCHC 33.2 RDW 13.6 Plt Count 217 MPV 9.3 Total Counted 100 Seg Neutrophils % 52 Band Neutrophils % Not Reportable Lymphocytes % 40 Monocytes % (Manual) 5 Eosinophils % (Manual) 2 Reactive Lymphocytes 1 Platelet Estimate Normal RBC Morphology Normal Sodium 138 Potassium 4.2 Chloride 101 Carbon Dioxide 23 Anion Gap 14.0 BUN 18 Creatinine 0.8 GFR Calculation 96 Glucose 87 Uric Acid 3.6 Calcium 8.9 Phosphorus 4.6 H Magnesium 2.2 Total Bilirubin 0.2 Direct Bilirubin < 0.2 GGT 26 AST 10 ALT 9 Alkaline Phosphatase 60 Lactate Dehydrogenase 164 Total Protein 6.8 Albumin 3.9 Globulin 2.9 Albumin/Globulin Ratio 1.3 Triglycerides 297 H Preliminary micro results at discharge 08/23/18 15:40 Blood Culture - Preliminary Blood 08/23/18 15:45 Blood Culture - Preliminary Blood Medical - DS: A/P - Patient/Caregiver Discharge Instructions Activity: increase activity as tolerated Diet: Regular Diet Additional Instructions: Continue antibiotics as advised Follow-up PCP in 5 days Return to ER or worsening shortness of breath fever chills Reviewed the side effects profile of antibiotics including anaphylaxis/diarrhea and even C. difficile. Patient was advised to call primary care physician or return to ER if any of the warning symptoms are noted Refrain from smoking alcohol Please provide pneumonia and flu vaccine prior discharge Prescriptions: Cefdinir 300 mg PO BID #10 cap guaiFENesin/CODEINE [Robitussin AC] 10 ml PO Q4HP PRN 10 Days #1 udc PRN Reason: Cough Levofloxacin [Levaquin] 750 mg PO DAILY #2 tab - Follow up Plan Follow up with: Tiago Hedrick [Primary Care Provider] - Disposition: Home, Self-Care Prognosis: Fair Rehab Potential: Fair I certify that the patient requires SNF services: No Overall status at discharge: patient is progressing back to baseline Medical - DS: Qual - VTE Deep Vein Thrombosis/Pulmonary Embolism Present on Admission: No
[2018-08-26] MEDS ORDERED: LEVOFLOXACIN 750 MG/150 ML BAG IV SCH (10:00)
== END 2018-08-26 11:30 | disposition home or self-care (01) | DRG 871 ==
LOC: ED 15:12 → ICU 19:24 → MEDSUR 08-25 12:34
PROVIDERS: ADMIT Internal Medicine; ATTEND Internal Medicine
CPT/HCPCS: 84145